=== PATIENT | female | born 1965 | race African-American/Black ===

== ENCOUNTER 2023-01-07 13:47 | Inpatient (IN) | payer BC ==
[~2023-01-07 13:47] MED LIST: Heparin 10,000 UNITS/ 10 ML VIAL ONE
[2023-01-07 14:59] LABS: #Basophils 0.1 thou/uL (0.0-0.2); #Eosinphils 0.7 thou/uL (0.0-0.7); #Monocytes 1.1 thou/uL (0.11-0.59); #Neutrophils 6.8 thou/uL (1.40-6.50); %Basophils 0.7 % (0.0-1.0); %Eosinophils 6.3 % (0.0-10.0); %Lymphocytes 18.6 % (21.0-51.0); %Monocytes 10.6 % (0.0-10.0); %Neutrophils 63.1 % (42.0-75.0); Hematocrit 32.4 % (36.0-47.0); Hemoglobin 9.8 g/dL (12.0-16.0); Mean Corpuscular HGB CONC 30.2 g/dL (32.0-36.0); Mean Corpuscular Volume 85.9 fl (78.0-98.0); Platelet Count 286 10x3/uL (130-400); RBC Distribution Width 16.6 % (11.5-14.5); Red Blood Cell (RBC) Count 3.77 mill/uL (4.20-5.40); White Blood Cell (WBC) Count 10.7 10x3/uL (4.8-10.8)
[2023-01-07 15:24] LABS: ALT (SGPT) 8 U/L (8-55); AST (SGOT) 14 U/L (5-34); Alkaline Phosphatase 145 U/L (40-110); Anion Gap 19 mmol/L (10-20); BUN (Urea Nitrogen) 28 mg/dL (9.8-20.1); Bilirubin, Total 0.2 mg/dL (0.2-1.2); Calc. Creatinine Clearance 0 mL/min (70-130); Carbon Dioxide 19 mmol/L (22-29); Chloride 103 mmol/L (98-107); Estimated GFR 7; Globulin 4.5 g/dL (2.4-3.5); Glucose 160 mg/dL (70-105); Potassium 4.7 mmol/L (3.5-5.1); Protein, Total 7.5 g/dL (6.0-8.3); Sodium 136 mmol/L (136-145)
[2023-01-07] MEDS ORDERED: Acetaminophen 325 MG TAB PO PRN (18:06)
[2023-01-07] MEDS ORDERED: Acetaminophen 650 MG Suppository PR PRN (18:06)
[2023-01-07] MEDS ORDERED: Dextrose 50% Abboject 50 ML SYRINGE SLOW IVP PRN (18:11)
[2023-01-07] MEDS ORDERED: Glucagon 1 MG/ML KIT IM PRN (18:11)
[2023-01-07] MEDS ORDERED: HumaLOG 300 UNITS/3 ML VIAL SC PRN ×2 (18:11)
[2023-01-07] MEDS ORDERED: Dextrose 5% in Water 1,000 ML IV PRN (18:11)
[2023-01-07] MEDS ORDERED: Senokot S 8.6-50 MG TAB PO PRN (18:13)
[2023-01-07 19:43] LABS: Phosphorus 4.4 mg/dL (2.3-4.7)
[2023-01-07] MEDS ORDERED: Vancomycin 1 GM in Premix Bag 1 BAG IVPB SCH ×2 (20:00→21:00)
[2023-01-07 20:25] VITALS: BMI 33.6
[2023-01-07] MEDS ORDERED: Vancomycin Diaylsis Sliding Scale (Wt 71-99) FS SCH (20:45)
[2023-01-07] MEDS ORDERED: Cefepime 1 GM in Sodium Chloride 0.9% 100 ML IVPB SCH (21:00)
[2023-01-07] MEDS ORDERED: Cefepime 0.5 GM in Sodium Chloride 0.9% 100 ML IVPB SCH (21:00)
[2023-01-07] MEDS ORDERED: Vancomycin 1.5 GRAM/300 ML BAG 1.5 GM in Premix Bag 1 BAG IVPB SCH (21:00)
[2023-01-07 22:35] LABS: HBSAB Concentration Less than 8.00 mIU/mL; HBSAg Index 0.27 S/CO (0-0.99); Hep B Core Total Ab Non-Reactive (NonReactive); Hep B Core Total Index 0.14 S/CO (0-0.79); Hep B Surf AB Non-Reactive (NonReactive); Hep B Surf Ag Non-Reactive S/CO (NonReactive); Hep C IgG Ab Non-Reactive S/CO (NonReactive); Hep C Index 0.26 S/CO (0-0.79)
[2023-01-07 23:30] LABS: Lactic Acid 0.6 mmol/L (0.5-2.2)
[2023-01-08] MEDS: Heparin 5,000 UNITS/ML VIAL SC SCH ×4 (02:38→20:30)
[2023-01-08] MEDS: dilTIAZem 30 MG TAB PO SCH ×4 (02:39→20:29)
[2023-01-08] MEDS: Atorvastatin Calcium 20 MG TAB PO SCH ×2 (02:39→20:30)
[2023-01-08 07:01] LABS: #Basophils 0.1 thou/uL (0.0-0.2); #Eosinphils 0.6 thou/uL (0.0-0.7); #Monocytes 1.1 thou/uL (0.11-0.59); #Neutrophils 5.2 thou/uL (1.40-6.50); %Basophils 0.8 % (0.0-1.0); %Eosinophils 6.7 % (0.0-10.0); %Lymphocytes 19.1 % (21.0-51.0); %Monocytes 12.6 % (0.0-10.0); %Neutrophils 59.8 % (42.0-75.0); Hematocrit 30.6 % (36.0-47.0); Hemoglobin 9.5 g/dL (12.0-16.0); Mean Corpuscular Hemoglobin 25.9 pg (27.0-31.0); Mean Corpuscular Volume 83.4 fl (78.0-98.0); Mean Platelet Volume 10.2 fL (7.4-10.4); Platelet Count 270 10x3/uL (130-400); RBC Distribution Width 16.4 % (11.5-14.5); Red Blood Cell (RBC) Count 3.67 mill/uL (4.20-5.40); White Blood Cell (WBC) Count 8.7 10x3/uL (4.8-10.8)
[2023-01-08 07:24] LABS: Vancomycin, Random 22.1 ug/mL (See Comment)
[2023-01-08 07:31] LABS: ALT (SGPT) 8 U/L (8-55); AST (SGOT) 13 U/L (5-34); Albumin 2.8 g/dL (3.5-5.0); Alkaline Phosphatase 132 U/L (40-110); Anion Gap 15 mmol/L (10-20); BUN (Urea Nitrogen) 13 mg/dL (9.8-20.1); Bilirubin, Total 0.2 mg/dL (0.2-1.2); Calc. Creatinine Clearance 22 mL/min (70-130); Calcium 8.7 mg/dL (7.8-10.44); Carbon Dioxide 24 mmol/L (22-29); Chloride 102 mmol/L (98-107); Estimated GFR 15; Globulin 4.1 g/dL (2.4-3.5); Glucose 87 mg/dL (70-105); Magnesium 1.8 mg/dL (1.6-2.6); Potassium 3.6 mmol/L (3.5-5.1); Protein, Total 6.9 g/dL (6.0-8.3); Sodium 137 mmol/L (136-145)
[2023-01-08] MEDS ORDERED: Heparin 10,000 UNITS/ 10 ML VIAL ONE (09:46)
[2023-01-08 19:15] LABS: Vancomycin, Random 35.8 ug/mL (See Comment)
[2023-01-09] MEDS: Heparin 5,000 UNITS/ML VIAL SC SCH ×3 (08:32→21:17)
[2023-01-09] MEDS: dilTIAZem 30 MG TAB PO SCH ×3 (08:32→21:17)
[2023-01-09] MEDS: Atorvastatin Calcium 20 MG TAB PO SCH (21:17)
[2023-01-10 07:41] LABS: Vancomycin, Random 31.8 ug/mL (See Comment)
[2023-01-10] MEDS: Heparin 5,000 UNITS/ML VIAL SC SCH ×3 (08:18→21:16)
[2023-01-10] MEDS: dilTIAZem 30 MG TAB PO SCH ×3 (08:27→21:16)
[2023-01-10] MEDS ORDERED: Heparin 10,000 UNITS/ 10 ML VIAL ONE (08:44)
[2023-01-10] MEDS: Atorvastatin Calcium 20 MG TAB PO SCH (21:16)
[2023-01-11] MEDS: dilTIAZem 30 MG TAB PO SCH (08:08)
[2023-01-11] MEDS: Heparin 5,000 UNITS/ML VIAL SC SCH (08:08)
[2023-01-11 11:07] VITALS: BP 126/79; TEMP 98
== END 2023-01-11 13:54 | disposition home or self-care (01) | DRG 314 ==
LOC: ERS 13:47 → T4-B 17:11
PROVIDERS: ADMIT Internal Medicine; ATTEND Family Medicine
PROC: 5A1D70Z Performance of Urinary Filtration, Intermittent, Less than 6 Hours Per Day (ICD-10-PCS; principal; 2023-01-07)
DX: T80.211A Bloodstream infection due to central venous catheter, initial encounter (principal); N18.6 End stage renal disease; T82.41XA Breakdown (mechanical) of vascular dialysis catheter, initial encounter; I13.2 Hypertensive heart and chronic kidney disease with heart failure and with stage 5 chronic kidney disease, or end stage renal disease; I50.32 Chronic diastolic (congestive) heart failure; L97.429 Non-pressure chronic ulcer of left heel and midfoot with unspecified severity; L97.419 Non-pressure chronic ulcer of right heel and midfoot with unspecified severity; L03.313 Cellulitis of chest wall; E11.22 Type 2 diabetes mellitus with diabetic chronic kidney disease; R53.81 Other malaise; D63.1 Anemia in chronic kidney disease; E66.01 Morbid (severe) obesity due to excess calories; L89.152 Pressure ulcer of sacral region, stage 2; Z79.82 Long term (current) use of aspirin; Z79.899 Other long term (current) drug therapy; Z99.3 Dependence on wheelchair; Z99.2 Dependence on renal dialysis; Z68.33 Body mass index [BMI] 33.0-33.9, adult; B95.61 Methicillin susceptible Staphylococcus aureus infection as the cause of diseases classified elsewhere; Z91.158 Patient's noncompliance with renal dialysis for other reason; Y83.8 Other surgical procedures as the cause of abnormal reaction of the patient, or of later complication, without mention of misadventure at the time of the procedure
CPT/HCPCS: 36415; 36416; 80053; 80202; 83605; 83735; 84100; 85025; 86704; 87040; 87070; 87077; 87186; 87205; 93005; J0692; J1644; J3370; J3490